=== PATIENT | female | born 1995 | race Caucasian/White ===

== ENCOUNTER 2019-01-21 15:23 | Emergency (ER) | payer MEDICAID ==
[2019-01-21 16:04] LABS: #Basophils 0.1 thou/uL (0.0-0.2); #Eosinphils 0.3 thou/uL (0.0-0.7); #Lymphocytes 2.5 thou/uL (1.20-3.40); #Monocytes 0.7 thou/uL (0.11-0.59); #Neutrophils 8.7 thou/uL (1.40-6.50); %Basophils 0.5 % (0.0-1.0); %Eosinophils 2.1 % (0.0-10.0); %Lymphocytes 20.7 % (21.0-51.0); %Monocytes 5.7 % (0.0-10.0); Hemoglobin 10.4 g/dL (12.0-16.0); Mean Corpuscular HGB CONC 33.2 g/dL (32.0-36.0); Mean Corpuscular Hemoglobin 27.4 pg (27.0-31.0); Mean Corpuscular Volume 82.5 fL (78.0-98.0); Mean Platelet Volume 8.3 fL (7.4-10.4); Platelet Count 258 thou/uL (130-400); RBC Distribution Width 13.6 % (11.5-14.5); Red Blood Cell (RBC) Count 3.78 mill/uL (4.20-5.40); White Blood Cell (WBC) Count 12.3 thou/uL (4.8-10.8)
[2019-01-21 16:24] LABS: ALT (SGPT) 9 U/L (8-55); AST (SGOT) 12 U/L (5-34); Albumin 3.7 g/dL (3.5-5.0); Alkaline Phosphatase 53 U/L (40-150); Anion Gap 12 mmol/L (10-20); BUN (Urea Nitrogen) 6 mg/dL (7.0-18.7); Bilirubin, Total Less than 0.2 mg/dL (0.2-1.2); Calc. Creatinine Clearance 0 mL/min (70-130); Calcium 9.2 mg/dL (7.8-10.44); Carbon Dioxide 21 mmol/L (22-29); Chloride 107 mmol/L (98-107); Estimated GFR-MDRD Greater than 90; Globulin 2.7 g/dL (2.4-3.5); Glucose 127 mg/dL (70-105); Protein, Total 6.4 g/dL (6.0-8.3); Sodium 137 mmol/L (136-145)
[2019-01-21 16:26] LABS: Bilirubin Negative (Negative); Blood, Urine Negative (Negative); Clarity CLEAR (Clear); Glucose, Urine (Dipstick) Negative (Negative); Leukocyte Negative (Negative); Nitrite Negative (Negative); Protein, Urine (Dipstick) Negative (Neg-Trace); Specific Gravity, Urine 1.007 (1.002-1.036); Urobilinogen 0.2 mg/dL (0.2-1.0); pH, Urine 6.5 (5.0-9.0)
[2019-01-21] MEDS ORDERED: D5 1/2 NS w/20 mEq KCL 1,000 ML ONE (18:03)
== END 2019-01-21 20:32 | disposition home or self-care (01) ==
LOC: ERS 15:23
DX: O99.282 Endocrine, nutritional and metabolic diseases complicating pregnancy, second trimester (principal); E87.6 Hypokalemia; O99.89 Other specified diseases and conditions complicating pregnancy, childbirth and the puerperium; R00.2 Palpitations; O99.342 Other mental disorders complicating pregnancy, second trimester; F41.9 Anxiety disorder, unspecified; F32.9 Major depressive disorder, single episode, unspecified; O99.332 Smoking (tobacco) complicating pregnancy, second trimester; F17.210 Nicotine dependence, cigarettes, uncomplicated; Z79.82 Long term (current) use of aspirin; Z3A.22 22 weeks gestation of pregnancy
CPT/HCPCS: 80053; 81003; 83735; 84443; 85025; 93005; 94760; 96365; 96366

== ENCOUNTER 2019-04-05 14:18 | Day surgery (SDC) | payer MEDICAID, OTHER ==
[2019-04-05 14:46] VITALS: TEMP 98.8; BMI 36.1
[2019-04-05 15:17] LABS: Bacteria/HPF 1+ HPF (None Seen); Bilirubin Negative (Negative); Blood, Urine Negative (Negative); Clarity Clear (Clear); Glucose, Urine (Dipstick) Normal (Negative); Leukocyte Negative Leu/uL (Negative); Nitrite Negative (Negative); Protein, Urine (Dipstick) Negative (Neg-Trace); RBC/HPF 0-3 HPF (0-3); Squamous Epithelial 0-3 HPF (0-3); Urobilinogen Normal mg/dL (Less than 2); WBC/HPF 0-3 HPF (0-3)
[2019-04-05 15:19] LABS: Urine Culture Reflex No No
--- NOTE | 2019-04-05 15:52 | PDOC.LDHP ---
Labor and Delivery H&P Chief complaint: abdominal pain HPI: 24 y/o at 32w3d, patient of Dr. Patel, presents with pelvic pressure and abdominal pain. Pain intermittent for the last 3 days. Denies VB, LOF, or decreased FM. ROS neg for HEENT, CV, pulm, GI, , neuro, psych, skin, musculoskeletal, or constitutional symptoms other than mentioned above. OB History Details: 1 prior Emergent LTCS at 34 weeks Current complications: none Past Medical History: None Current medications: pre- vitamins Previous surgical history: low tranverse CS Allergies/Adverse Reactions: Allergies Allergy/AdvReac Type Severity Reaction Status Date / Time morphine Allergy Intermediate Hives Verified 04/05/19 14:42 Social history: none - Physical Exam Vital signs reviewed and normal: yes General: NAD, resting Lungs: nonlabored breathing Abdomen: gravid Extremeties: no edema (140s, mod variability, + accels, no decels) [place] contractions every: rare - Vaginal Exam cm dilated: 1 (unchanged after 2 hours) Effacement: 25% Station: -3 - Assessment 24 y/o at 36w5d with no e/o PTL or UTI. FFN negative. status reassuring with reactive NST. - Plan -: D/c home with precautions. Advised to keep all appointments.
[2019-04-05 15:54] LABS: FFN Internal QC Analyzer PASS (PASS); FFN Internal QC Cassette PASS (PASS); Fetal Fibronectin Negative (Negative)
== END 2019-04-05 17:10 | disposition home or self-care (01) ==
LOC: L&D/OP 14:18
PROVIDERS: ATTEND Obstetrics & Gynecology
DX: O99.89 Other specified diseases and conditions complicating pregnancy, childbirth and the puerperium (principal); R10.2 Pelvic and perineal pain; Z3A.36 36 weeks gestation of pregnancy; Z88.5 Allergy status to narcotic agent
CPT/HCPCS: 81001; 82731; 99284

== ENCOUNTER 2019-04-18 08:38 | Day surgery (SDC) | payer OTHER ==
[2019-04-18] MEDS ORDERED: Acetaminophen 500 MG TAB PO SCH (09:30)
[2019-04-18 09:44] VITALS: BMI 37.2
[2019-04-18] MEDS ORDERED: Iron Sucrose Complex 500 MG in Sodium Chloride 0.9% 250 ML 250 ML IVPB SCH (09:45)
--- NOTE | 2019-04-18 10:32 | PDOC.EVN ---
Event Note - Event Note Event Note: [facility] Patient seen at bedside Sees Dr. Patel at , next appointment Monday Here for FE infusion- first one. EGA: 34 weeks 2 days Provider has ordered 500mg FE Sucrose. Patient seen and courtesy evaluated...proceed per primary provider direction.
[2019-04-18 14:17] VITALS: BP 103/64; TEMP 98
== END 2019-04-18 15:00 | disposition home or self-care (01) ==
LOC: L&D/OP 08:38 → 3SE 12:52 → L&D/OP 15:00
PROVIDERS: ATTEND Obstetrics & Gynecology
DX: O99.013 Anemia complicating pregnancy, third trimester (principal); D64.9 Anemia, unspecified; Z3A.34 34 weeks gestation of pregnancy; Z88.5 Allergy status to narcotic agent
CPT/HCPCS: J1756; J7050

== ENCOUNTER 2019-04-18 22:06 | Observation (INO) | payer OTHER ==
[2019-04-18] MEDS ORDERED: Betamet Acet/Betamet Na Ph 30 MG/5 ML VIAL ONE (22:36)
[2019-04-18] MEDS: Betamet Acet/Betamet Na Ph 30 MG/5 ML VIAL IM SCH (22:40)
[2019-04-18 22:41] LABS: Amnisure Test No Membranes Rupture (No Rupture)
[2019-04-18 22:42] LABS: Amnisure Internal Control QC ACCEPTABLE (ACCEPTABLE)
[2019-04-18 23:01] VITALS: BMI 37.0
[2019-04-18] MEDS: Lactated Ringer's 2,000 ML IV SCH (23:05)
[2019-04-19] MEDS ORDERED: Butorphanol Tartrate 1 MG/ML VIAL ONE (00:12)
[2019-04-19] MEDS ORDERED: Butorphanol Tartrate 1 MG/ML VIAL SLOW IVP PRN (00:37)
[2019-04-19] MEDS ORDERED: Promethazine HCl 25 MG/ML VIAL IM PRN (00:38)
[2019-04-19] MEDS: Lactated Ringer's 2,000 ML IV SCH (01:00)
[2019-04-19 08:19] VITALS: BP 121/66; TEMP 98.9
[2019-04-19] MEDS ORDERED: Cyclobenzaprine 10 MG TAB PO SCH (19:45)
[2019-04-19] MEDS ORDERED: Acetaminophen 325 MG TAB PO SCH (19:45)
[2019-04-19] MEDS: Betamet Acet/Betamet Na Ph 30 MG/5 ML VIAL IM SCH (21:04)
== END 2019-04-19 21:44 | disposition home health service (06) ==
LOC: L&D/OP 22:06 → INTOOBSV 23:27 → L&D 23:27
PROVIDERS: ADMIT Obstetrics & Gynecology; ATTEND Obstetrics & Gynecology
DX: O99.89 Other specified diseases and conditions complicating pregnancy, childbirth and the puerperium (principal); R10.9 Unspecified abdominal pain; R11.0 Nausea; Z88.5 Allergy status to narcotic agent; Z3A.00 Weeks of gestation of pregnancy not specified
CPT/HCPCS: 76815; 84112; 96374; 96375; 96376; 99285; G0378; J0595; J0702; J2550

== ENCOUNTER 2019-05-01 11:13 | Day surgery (SDC) | payer OTHER ==
[2019-05-01] MEDS ORDERED: hydrALAZINE 20 MG/ML VIAL SLOW IVP PRN (12:03)
[2019-05-01 17:06] VITALS: BMI 37.2
== END 2019-05-01 19:19 | disposition home or self-care (01) ==
LOC: L&D/OP 11:13
PROVIDERS: ATTEND Obstetrics & Gynecology
DX: Z34.83 Encounter for supervision of other normal pregnancy, third trimester (principal); Z3A.36 36 weeks gestation of pregnancy; Z79.82 Long term (current) use of aspirin; Z88.5 Allergy status to narcotic agent
CPT/HCPCS: 99283

== ENCOUNTER 2019-05-07 14:17 | Inpatient (IN) | payer OTHER ==
[2019-05-07] MEDS ORDERED: CEFAZOLIN 2 GM in Premix Bag 1 BAG IVPB SCH (15:15)
[2019-05-07] MEDS ORDERED: Bicitra 30 ML UDCUP PO SCH (15:15)
[2019-05-07 15:24] VITALS: BMI 37.5
[2019-05-07 15:25] LABS: Hemoglobin 11.2 g/dL (12.0-16.0); Mean Corpuscular HGB CONC 33.2 g/dL (32.0-36.0); Mean Corpuscular Hemoglobin 26.1 pg (27.0-31.0); Mean Corpuscular Volume 78.8 fL (78.0-98.0); Mean Platelet Volume 9.3 fL (7.4-10.4); Platelet Count 280 thou/uL (130-400); RBC Distribution Width 19.5 % (11.5-14.5); Red Blood Cell (RBC) Count 4.29 mill/uL (4.20-5.40); White Blood Cell (WBC) Count 13.4 thou/uL (4.8-10.8)
[2019-05-07] MEDS ORDERED: Ondansetron PF 4 MG/2 ML Vial IVP PRN ×3 (15:50→20:04)
[2019-05-07] MEDS ORDERED: hydrALAZINE 20 MG/ML VIAL SLOW IVP PRN ×2 (15:50→20:04)
[2019-05-07] MEDS ORDERED: Promethazine HCl 25 MG/ML VIAL IM PRN ×3 (15:50→20:04)
[2019-05-07 16:02] LABS: Syphilis Antibody Nonreactive (Nonreactive); Syphilis Antibody Index 0.03 S/CO (<1.00 Non-Reactive)
[2019-05-07 16:03] LABS: HBSAg Index 0.15 S/CO (0-0.99); Hep B Surf Ag Non-Reactive S/CO (NonReactive)
[2019-05-07] MEDS ORDERED: Ketorolac Tromethamine 30 MG/ML VIAL ONE ×3 (17:33→20:36)
[2019-05-07] MEDS ORDERED: Ondansetron PF 4 MG/2 ML Vial ONE ×2 (17:33→18:28)
[2019-05-07] MEDS ORDERED: PHENYLEPHRINE-NS 100 MCG/ML 10 ML SYRINGE ONE ×2 (17:33→18:49)
[2019-05-07] MEDS ORDERED: ePHEDrine 50 MG/ML VIAL ONE (17:33)
[2019-05-07] MEDS ORDERED: ePHEDrine/0.9% NaCl/PF SYRINGE 50 mg/10 ml ONE (18:28)
[2019-05-07] MEDS ORDERED: Oxytocin 10 UNITS/ML VIAL ONE (18:28)
[2019-05-07] MEDS ORDERED: PHENYLEPHRINE-NS 100 MCG/ML 10 ML SYRINGE IVP SCH (19:00)
[2019-05-07] MEDS ORDERED: Phenylephrine HCL 10 MG/ML VIAL IV SCH (19:00)
[2019-05-07] MEDS ORDERED: HYDROmorphone 2 MG/ML VIAL SLOW IVP PRN (19:12)
[2019-05-07] MEDS ORDERED: Meperidine HCl/PF 25 MG/ML VIAL SLOW IVP PRN ×2 (19:12→19:40)
[2019-05-07] MEDS ORDERED: Ondansetron HCl/PF 4 MG/2 ML Vial IVP PRN ×2 (19:12→19:40)
[2019-05-07] MEDS ORDERED: Ketorolac Tromethamine 30 MG/ML VIAL IVP SCH (19:15)
[2019-05-07] MEDS ORDERED: Naloxone HCl 0.4 mg/ml Vial IVP PRN ×2 (19:40)
[2019-05-07] MEDS ORDERED: diphenhydrAMINE 50 MG/ML VIAL IVP PRN (19:40)
[2019-05-07] MEDS ORDERED: Promethazine HCl 25 MG SUPP PR PRN (19:40)
[2019-05-07] MEDS ORDERED: Naloxone HCl 0.4 mg/ml Vial IV PRN (19:40)
[2019-05-07] MEDS ORDERED: Communication Order-Pharmacy FS SCH (19:45)
[2019-05-07] MEDS ORDERED: Acetaminophen 1,000 MG in Premix Bag 1 BAG IVPB SCH (20:00)
[2019-05-07] MEDS ORDERED: Lanolin Ointment 7 GM TUBE TOP PRN (20:04)
[2019-05-07] MEDS ORDERED: HYDROcodone/Acetaminophen 5/325 mg Tablet PO PRN (20:04)
[2019-05-07] MEDS ORDERED: NS / Oxytocin 40 units/1000ml 1,000 ML IV SCH (20:15)
[2019-05-07] MEDS ORDERED: NS / Oxytocin 40 units/1000ml 1,000 ML ONE (20:30)
[2019-05-07] MEDS: Lactated Ringer's 1,000 ML IV SCH ×5 (21:57→23:51)
[2019-05-07] MEDS: Ferrous Sulfate 325 MG TAB PO SCH (22:00)
[2019-05-07] MEDS: Docusate Calcium (SURFAK) 240 MG CAP PO SCH (22:00)
[2019-05-07] MEDS: Ibuprofen 800 MG TAB PO SCH (22:01)
[2019-05-07] MEDS ORDERED: Acetaminophen 1,000 MG in Premix Bag 1 BAG IVPB PRN (23:36)
[2019-05-07] MEDS: Fentanyl 100 MCG/2 ML VIAL SLOW IVP PRN (23:47)
[2019-05-08] MEDS: Fentanyl 100 MCG/2 ML VIAL SLOW IVP PRN (02:14)
[2019-05-08] MEDS: Lactated Ringer's 1,000 ML IV SCH ×20 (02:35→22:55)
[2019-05-08] MEDS: Ibuprofen 800 MG TAB PO SCH ×3 (04:25→21:37)
[2019-05-08] MEDS: Ferrous Sulfate 325 MG TAB PO SCH ×2 (08:21→21:35)
[2019-05-08] MEDS: Simethicone Chewable 80 MG TAB PO PRN (09:56)
[2019-05-08] MEDS: Docusate Calcium (SURFAK) 240 MG CAP PO SCH ×2 (09:57→21:37)
[2019-05-08] MEDS: Prenatal Vitamin 1 TAB PO SCH (09:57)
[2019-05-08] MEDS: HYDROcodone/Acetaminophen 5/325 mg Tablet PO PRN ×3 (09:57→19:53)
[2019-05-09] MEDS: HYDROcodone/Acetaminophen 5/325 mg Tablet PO PRN (05:25)
[2019-05-09] MEDS: Simethicone Chewable 80 MG TAB PO PRN (05:26)
[2019-05-09] MEDS: Ibuprofen 800 MG TAB PO SCH (05:26)
[2019-05-09] MEDS: Prenatal Vitamin 1 TAB PO SCH (09:11)
[2019-05-09] MEDS: Docusate Calcium (SURFAK) 240 MG CAP PO SCH (09:11)
[2019-05-09] MEDS: Ferrous Sulfate 325 MG TAB PO SCH (09:15)
[2019-05-09 11:52] VITALS: BP 110/59; TEMP 99
--- NOTE | 2019-05-09 13:38 | DN ---
DATE OF PROCEDURE: 05/07/2019 PREOPERATIVE DIAGNOSES: 1. A 24-year-old female, G2, P0-1-0-1, at 37 weeks with advanced cervical dilation. 2. Group B Streptococcus negative. 3. History of delivery at 34 weeks for severe preeclampsia by low-transverse section. 4. Severe anemia in a , requiring transfusion of iron. 5. History of severe anxiety. POSTOPERATIVE DIAGNOSES: 1. A 24-year-old female, G2, P0-1-0-1, at 37 weeks with advanced cervical dilation. 2. Group B Streptococcus negative. 3. History of delivery at 34 weeks for severe preeclampsia by low-transverse section. 4. Severe anemia in a , requiring transfusion of iron. 5. History of severe anxiety. 6. Live-born female, weighing 6 pounds 4 ounces, with Apgars of 9 and 9 at one and five minutes respectively. ESTIMATED BLOOD LOSS: 550 mL. QUANTITATIVE BLOOD LOSS: 629. ANESTHESIA: Spinal. CLINICAL HISTORY: This patient is a 24-year-old female who had a course complicated by history of preeclampsia in her previous with a low-transverse section. The patient opted for a repeat low-transverse section at the appropriate time. She also had severe anemia down to 7.7 with an iron transfusion subsequently allowed for increase in her hemoglobin to 9.9. She also had treatment in prevention for her preeclampsia with a baby aspirin daily. She began cervical dilation at approximately 32 weeks and reached 3 cm and held there for several weeks. However, subsequently, had multiple admissions for contractions and discomfort. On the day of presentation, she was noted to be 5 cm, 70% effaced, and -3 station. She was 37 weeks at presentation and decision was made to proceed with the section. DESCRIPTION OF PROCEDURE: The patient was taken to the operating room, where spinal anesthesia was obtained. She was laid in the supine position with a leftward tilt. She was prepped and draped in the usual sterile fashion. A Contreras catheter was placed. She also had Doptones in the 140s. After testing for adequate anesthesia, an incision was made to remove her previous scar with a scalpel in a Pfannenstiel manner and this incision was carried down to her fascia. The fascia was nicked in the midline and extended out bilaterally. Rod clamps were used x2 to elevate the fascia off the rectus muscles superiorly and inferiorly. The muscles were then in the midline and the peritoneum was breached. This incision was extended with a combination of sharp and blunt dissection. The bladder blade was then placed and the anterior bladder flap was created and the bladder was reduced further down in the pelvis. The uterine incision was then made in the Pfannenstiel manner on the lower uterine segment to the amnion. An amniotomy was performed and clear fluid was noted. This incision was extended out bilaterally and the surgeon's hand was then placed into the uterus and the head was lifted to the incision and delivered through. The anterior shoulder followed by the posterior shoulder followed by the remainder of the 's body was delivered. The cried spontaneously and was vigorous. She had a delayed cord clamping. The cord was doubly clamped and then cut after greater than 60 seconds. The cord blood was obtained and then the infant was handed off to the neonatology team in attendance of the delivery. The placenta was then delivered manually intact with a 3-vessel cord. The uterus was exteriorized and cleansed of all debris and the incision was closed in a running locking fashion with excellent hemostasis. A 2nd imbricating closure was performed and the bladder flap was then reapproximated over this incision with excellent hemostasis. The gutters were cleansed of all debris and the uterine anterior surface was covered with a film of the Seprafilm. The uterus was then placed back into the abdomen. The peritoneum was closed in a running fashion. The free fascia gutters were cleansed off debris. The rectus muscles were reapproximated with interrupted [id number] sutures and the fascia was closed in a running fashion with an 0 Vicryl. The subcutaneous tissues were copiously irrigated and Bovie cautery was used to correct any bleeding. The subcutaneous tissues were then built back up with interrupted reapproximation sutures with a 2-0 plain gut until the space was closed and the skin was closed with a 3-0 Monocryl with excellent hemostasis. Steri-Strips and Mastisol were used to reapproximate the skin and a pressure dressing with a Telfa, Tegaderm, and 4x4s was used. The patient tolerated the procedure well and was able to recover in Labor and Delivery in satisfactory condition with her . Again, the infant was a live born female, weighing 6 pounds 4 ounces with Apgars of 9 and 9 at one and five minutes respectively. There were no other issues surrounding this delivery. Job ID: [id number]
--- NOTE | 2019-05-11 07:06 | PQF ---
DATE: 05/11/2019 ATTN: Rafaela Patel MD Please exercise your independent, professional judgment in responding to the clarification form. Clinical indicators are provided on the bottom of this form for your review Please check appropriate box(s): [ ] Acute blood loss anemia [ ] Post-op anemia related to acute blood loss [ x ] Anemia: [ ] Aplastic [ ] Nutritional [ ] Drug induced (specify) __ [ ] Hemolytic [ ] Hereditary [x ] Acquired [ ] Autoimmune [ ] Non-autoimmune [ ] Enzyme disorder [ ] Chronic Anemia: [ ] Blood loss [ ] Hemolytic [ ] Simple [ ] Due to Vitamin B12 Deficiency [ x ] Other _iron deficiency- s/p iron transfusion- improved to 11.2 on admit [ ] Anemia of Chronic Disease (please specify) [ ] Anemia due to Neoplasm: [ ] Primary [ ] Secondary [ ] Anemia due to (please choose): [ ] Due to Chemotherapy [ ] Due to Radiotherapy [ ] Due to Immunotherapy [ ] Other diagnosis [ ] Unable to determine For continuity of documentation, please document condition throughout progress notes and discharge summary. Thank You. CLINICAL INDICATORS - SIGNS / SYMPTOMS / LABS -Severe anemia in , requiring transfusion of iron-Delivery note, 05/07 , Rafaela Patel MD -Estimated blood loss: 550 ml-Delivery note, 05/07, Rafaela Patel MD -Quantitative Blood loss: 629-Delivery note, 05/07Jorge Virginia MD -Hgb:11.2L, Hct:33.8L-Laboratory, 05/07 RISK FACTORS -L-[id number]-[id number] note, 05/07Jorge Virginia MD -Cervical dilation-Delivery note, 05/07Jorge Virginia MD TREATMENTS: -Ferrous sulfate.PO-NOV, 05/07 MTDD
== END 2019-05-09 12:10 | disposition home or self-care (01) | DRG 788 ==
LOC: L&D 14:17 → 3SW 21:57
PROVIDERS: ADMIT Obstetrics & Gynecology; ATTEND Obstetrics & Gynecology
PROC: 10D00Z1 Extraction of Products of Conception, Low, Open Approach (ICD-10-PCS; principal; 2019-05-07)
DX: O34.211 Maternal care for low transverse scar from previous cesarean delivery (principal); O99.02 Anemia complicating childbirth; O99.344 Other mental disorders complicating childbirth; D50.9 Iron deficiency anemia, unspecified; F41.9 Anxiety disorder, unspecified; Z3A.37 37 weeks gestation of pregnancy; Z37.0 Single live birth
CPT/HCPCS: 36415; 51702; 85027; 86780; 86850; 86900; 86901; 87340; J0131; J0690; J1885; J2370; J2405; J2590; J3010; J3490